=== PATIENT | female | born 1960 | race Caucasian/White ===

== ENCOUNTER → 2017-02-11 | Outpatient (CLI) | payer MEDICARE, MEDICAID ==
--- NOTE | 2017-02-11 10:54 | REPMRS ---
Patient History The patient states she had a clinical breast exam in 12/20 Patient is nulliparous. Digital Woman Screen Mammo: February 11, 2017 - Exam #: [id number] Bilateral CC and MLO view(s) were taken. Technologist: Marisa Cantu, Technologist Prior study comparison: March 05, 2016, digital woman screen mammo performed at [facility]. March 02, 2015, digital woman screen mammo performed at [facility]. FINDINGS: The breast tissue is heterogeneously dense. This may lower the sensitivity of mammography. There has been no change in the appearance of the mammogram from the prior studies. There is a moderate amount of residual fibroglandular tissue which is fairly symmetric. There is no interval development of dominant mass, areas of architectural distortion, or clustered microcalcification typical of malignancy. ASSESSMENT: BI-RADS/ACR category 1 mammogram. Negative. Recommendation Routine screening mammogram in 1 year (for women over age 40). This mammogram was interpreted with the aid of an FDA-approved computer-aided dectection system. Electronically Signed By: Sharif Butcher MD 02/11/17 [id number]
== END ==
LOC: M WHC 07:04
PROVIDERS: ATTEND Nurse Practitioner Family
DX: Z12.31 Encounter for screening mammogram for malignant neoplasm of breast (principal)

== ENCOUNTER → 2018-03-03 | Outpatient (REF) | payer MEDICARE, MEDICAID | LOC: M SFHCWAGY 10:02 | DX: Z12.4 Encounter for screening for malignant neoplasm of cervix (principal); N76.0 Acute vaginitis | CPT/HCPCS: G0123 ==

== ENCOUNTER → 2018-03-03 | Outpatient (CLI) | payer MEDICARE, MEDICAID | LOC: M WHC 09:53 | DX: Z12.31 Encounter for screening mammogram for malignant neoplasm of breast (principal); Z12.4 Encounter for screening for malignant neoplasm of cervix; Z12.12 Encounter for screening for malignant neoplasm of rectum; N76.0 Acute vaginitis | CPT/HCPCS: 77067; G0123 ==

== ENCOUNTER → 2019-03-04 | Outpatient (CLI) | payer MEDICARE, MEDICAID ==
[~2019-03-04] MED LIST: EFFE150C2 PO; EFFE37.5 PO; METO1TAB32 PO
--- NOTE | 2019-03-04 12:01 | REPMRS ---
Patient History The patient states she had a clinical breast exam in 02/2019. Patient is postmenopausal and is nulliparous. No Hormone Replacement Therapy 3D TOMOSYNTHESIS WAS PERFORMED. Digital Woman Screen Mammo: March 04, 2019 - Exam #: [id number] Bilateral CC and MLO view(s) were taken. Technologist: Donna Mcmanus, Technologist Prior study comparison: March 03, 2018, digital woman screen mammo performed at [facility]. February 11, 2017, digital woman screen mammo performed at [facility]. FINDINGS: The breast tissue is heterogeneously dense. This may lower the sensitivity of mammography. There has been no change in the appearance of the mammogram from the prior studies. There is a moderate amount of residual fibroglandular tissue which is fairly symmetric. There is no interval development of dominant mass, areas of architectural distortion, or clustered microcalcification typical of malignancy. Assessment: BI-RADS/ACR category 1 mammogram. Negative Mammogram. Recommendation Routine screening mammogram in 1 year (for women over age 40). This mammogram was interpreted with the aid of an FDA-approved computer-aided dectection system. Electronically Signed By: Sharif Butcher MD 03/04/19 1200
== END ==
LOC: M WHC 10:05
PROVIDERS: ATTEND Nurse Practitioner Family
DX: Z12.31 Encounter for screening mammogram for malignant neoplasm of breast (principal); Z78.0 Asymptomatic menopausal state
CPT/HCPCS: 77063; 77067; G0463

== ENCOUNTER → 2020-03-07 | Outpatient (CLI) | payer MEDICARE, MEDICAID ==
--- NOTE | 2020-03-07 12:25 | REPMRS ---
Patient History The patient states she had a clinical breast exam in March 2020. No Hormone Replacement Therapy 3D TOMOSYNTHESIS WAS PERFORMED. The [facility] lifetime risk for breast cancer is 13.8%. FIDELIA Brown. Digital Woman Screen Mammo: March 07, 2020 - Exam #: [id number] Bilateral CC and MLO view(s) were taken. Technologist: Alejandra Frankel, Technologist Prior study comparison: March 04, 2019, bilateral digital woman screen mammo performed at [facility]. March 03, 2018, digital woman screen mammo performed at [facility]. FINDINGS: The breast tissue is heterogeneously dense. This may lower the sensitivity of mammography. There has been no change in the appearance of the mammogram from the prior studies. There is a moderate amount of residual fibroglandular tissue which is fairly symmetric. There is no interval development of dominant mass, areas of architectural distortion, or clustered microcalcification typical of malignancy. Assessment: BI-RADS/ACR category 1 mammogram. Negative Mammogram. Recommendation Routine screening mammogram in 1 year (for women over age 40). This mammogram was interpreted with the aid of an FDA-approved computer-aided dectection system. Electronically Signed By: Sharif Butcher MD 03/07/20 [id number]
== END ==
LOC: M WHC 10:06
PROVIDERS: ATTEND Nurse Practitioner Family
DX: Z12.31 Encounter for screening mammogram for malignant neoplasm of breast (principal)
CPT/HCPCS: 77063; 77067; G0463

== ENCOUNTER → 2021-02-22 | Outpatient (CLI) | payer MEDICARE, MEDICAID | LOC: M WHC 10:33 | PROVIDERS: ATTEND Internal Medicine | DX: Z53.9 Procedure and treatment not carried out, unspecified reason (principal); Z12.31 Encounter for screening mammogram for malignant neoplasm of breast ==

== ENCOUNTER → 2021-03-14 | Outpatient (CLI) | payer MEDICARE, MEDICAID ==
--- NOTE | 2021-03-14 11:58 | REP ---
INDICATION: TANESHA SCR MAMMO/V76.10. COMPARISON: 03/07/2020 as well as other prior exams. TECHNIQUE: MLO and CC views of both breasts performed with tomosynthesis. FINDINGS: Moderate fibroglandular tissue is present bilaterally in a heterogeneous pattern. In the posteromedial right breast there is an oval lobulated nodular opacity which measures 13 x 6 mm and contains tiny calcifications. The nodular density appears to have been present on prior studies but the calcifications are new. In the right axilla there is an oval nodular density also containing tiny calcifications. This is incompletely visualized. Short axis dimension is 12 mm. No other mass or clustered microcalcifications are seen bilaterally. The Volpara volumetric breast density pattern is B. IMPRESSION: BIRADS/ACR category 0, incomplete. Oval lobulated nodular opacity in the posteromedial right breast contains tiny calcifications. Oval smoothly marginated nodular density in the right axilla is incompletely visualized and contains tiny calcifications. Recommend spot compression magnification views to further evaluate these 2 areas. Ultrasound will likely be necessary. This patient's Tyrer-Cuzick lifetime breast cancer risk assessment score is 13.5%. This mammogram was interpreted with the aid of an FDA-approved computer-aided detection system. The patient states she had a clinical breast exam in over 1 year ago. The patient letter being requested is M0. RECOMMENDATION: Recommend spot compression views and ultrasound right breast as discussed above. <Electronically signed by Sharif Butcher > 03/14/21 [id number]
== END ==
LOC: M WHC 11:00
PROVIDERS: ATTEND Internal Medicine
DX: Z12.31 Encounter for screening mammogram for malignant neoplasm of breast (principal)

== ENCOUNTER → 2021-03-27 | Outpatient (CLI) | payer MEDICARE, MEDICAID ==
--- NOTE | 2021-03-27 16:16 | REP ---
INDICATION: ADDL VIEWS R BREAST/NODULAR OPACITY; RIGHT BREAST ADDL VIEWS-NODULAR OPACITY. Screening mammography from March 14, 2021 was BI-RADS category 0 incomplete because of a prominent lymph node in the axilla and new microcalcifications in a nodular opacity in the medial aspect of the right breast. Diagnostic imaging was recommended. COMPARISON: Comparison mammography is also reviewed from March 07, 2020, March 04, 2019. TECHNIQUE: Magnified focal spot-compression CC, MLO, and non magnified true mL views are obtained. 3D tomography is carried out in the mL projection. Targeted right breast and right axillary ultrasound is performed. This mammogram was interpreted with the aid of an FDA-approved computer-aided detection system. FINDINGS: Scattered fibroglandular background echotexture is seen. A irregularly shaped low-attenuation nodular density is seen in the medial aspect of the right breast superomedial quadrant on diagnostic imaging. There are 5-6 microcalcifications associated with this. No other breast lesion is seen. In the axilla, a 1.3 cm spherical lymph node is seen. This contains what appears to be 1 calcification as well. The Volpara volumetric breast density pattern is b. Targeted ultrasound: Targeted right breast sonography is performed, 12:00 to 3:00 through the superomedial quadrant. And heterogeneous fibroglandular background echotexture is seen. No breast mass or cyst is seen. No suspicious sonographic findings in this portion of the breast. In the right axilla, scanning demonstrates a hypoechoic solid appearing area containing calc echogenic foci consistent with calcifications. This is felt to correspond with the apparent lymph node on mammography. It measures 1.6 x 1.0 x 1.3 cm on ultrasound images. There is some peripheral flow. It is just beneath the dermis. Possibilities include lymph node versus sebaceous cyst. IMPRESSION: BIRADS/ACR category 4 suspicious right breast mammographic and sonographic findings. Microcalcifications and low-attenuation nodular density in the superomedial quadrant of the right breast without ultrasound correlate. Stereotactic needle biopsy recommended. Also there is a 13 mm spherical nodular density containing a calcification in the right axilla. This is not a simple cyst or a benign appearing lymph node. Abnormal lymph node versus sebaceous cyst. Clinical correlation suggested. Surgical excision versus ultrasound-guided aspiration/biopsy recommended. This patient's Tyrer-Cuzick lifetime breast cancer risk assessment score is 13.5%. RECOMMENDATION: Stereotactic needle biopsy for microcalcifications right breast as above. Marker clip placement and post clip placement right breast mammography recommended. Clinical correlation and possibly ultrasound-guided needle biopsy for right axillary lesion as described above.. The patient letter being requested is M1. <Electronically signed by Kishore Wallace > 03/27/21 [id number]
== END ==
LOC: M WHC 09:55
PROVIDERS: ATTEND Internal Medicine
DX: R92.2 Inconclusive mammogram (principal)
CPT/HCPCS: 76642; 77065; G0279

== ENCOUNTER → 2021-04-18 | Outpatient (CLI) | payer MEDICARE, MEDICAID ==
[~2021-04-18] MED LIST changes: +DOCU100C16 PO; +LIPI20TA PO
[2021-04-18 14:09] VITALS: BP 126/78
--- NOTE | 2021-04-18 22:04 | ROOPDOC ---
[facility] Report Of Operation Report of Operation Date of the procedure:04/18/21 Diagnosis: Right axillary lesion Procedure:Ultrasound guided aspiration of Right/ axillary lesion Proceduralist: Amber Carr D.O. EBL: minimal Lidocaine 1% [id number] Expiration: 11/2024 Sodium Bicarbonate 8.4% LOT [id number] Expiration: 11/2021 Procedure details: Informed consent was obtained. Patient signed her own consent as she is making her medical decisions. The most common risk and possible complications including bleeding, hematoma, bruising, infection, injury to surrounding structures were explained to the patient and she expressed understanding. Patient was taken to the procedure room and placed on the bed in the supine position with the right upper extremity placed above the head. Appropriate time out was done stating patients name, date of , and the procedure to be performed. The right axilla was prepped and draped in the usual fashion. The ultrasound was used to confirm the location of the right axillary lesion which has some cystic appearance. This lesion is very superficial. Plain Lidocaine 1% and 8.4% sodium bicarbonate 10:1 mix was used to anesthetize the skin, and tissues along the anticipated aspiration tract. 18 G needle was used to investigate if the lesion is solid or cystic. About 1 cc of very viscous yellowish fluid was pulled out of the lesion. This suggests that the lesion is a sebaceous cyst. The fluid was sent for cytology to investigate if it contains proteinaceous material. Due to viscosity of the fluid, complete aspiration of the cystic lesion was not possible. Images were captures. Vocational Education Professional was present. Manual pressure over the cyst aspiration site and tract was held. No bleeding was noted upon removal of the pressure. Patient tolerated procedure well. Discharge instructions were discussed with the patient and she expressed understanding. AMBER CARR DO Apr 18, 2021 22:04
== END ==
LOC: M WHCPRO 07:15
PROVIDERS: ATTEND Surgery
DX: R92.8 Other abnormal and inconclusive findings on diagnostic imaging of breast (principal)

== ENCOUNTER → 2021-04-25 | Outpatient (CLI) | payer MEDICARE, MEDICAID ==
[2021-04-25 11:50] VITALS: BP 122/82
--- NOTE | 2021-04-25 22:07 | ROOPDOC ---
[facility] Report Of Operation Report of Operation DATE OF PROCEDURE: 04/25/21 DIAGNOSIS: Right breast suspicious mass with calcifications PROCEDURE: Right breast stereotactic biopsy with clip placement SURGEON: Amber Carr BLOOD LOSS: minimal Lidocaine 1% LOT [id number] Expiration 11/2024 Sodium Bicarbonate 8.4% LOT [id number] Expiration 11/2021 Hydromark clip LOT [id number] Expiration 12/2023 SHAPE: 3 Bx device: Stereotactic Mammotome Revolve Dual Vacuum- assisted Biopsy System 10 G LOT [id number] Expiration 02/2024 REF [id number] Informed consent was obtained in the preop area. The most common risk and possible complications including bleeding, hematoma, bruising, infection, injury to surrounding structures were explained to the patient and patient expressed understanding. Patient was taken to the procedure room and placed prone on the [email or web address] [facility] Prone Breast Biopsy table with the right breast hanging through the table aperture. Right breast was placed into Cranio-Caudal compression and Ad Setter duncan images were taken. Suspicious mass with calcifications was identified on the duncan images and target was set. CC approach from the top was chosen for this procedure. At this time, since we were able to confirm visibility of the suspicious mass with calcifications and patient tolerated prone positioning allowing to proceed with the biopsy, appropriate time out was done stating patients name, date of , and the procedure to be performed. The right breast in CC compression was prepped in the usual fashion. Plain Lidocaine 1% and 8.4% sodium bicarbonate 10:1 mix was used to anesthetize the skin, the biopsy site and tissues along the anticipated biopsy tract. Small skin incision was made with blade number 11. Mammotome 10 G stereotactic breast biopsy device was inserted through the incision and advanced to the previously set coordinates marking the target lesion. Pre-fire imaging was taken to assure appropriate positioning. At this time, Mammotome 10 G breast biopsy device was fired and five vacuum assisted biopsies were collected. The biopsy samples were investigated with [employer] system and calcifications from the target lesion were observed. Biopsy samples were then placed in the formaldehyde, marked with patients name and right breast biopsy site, and sent to pathology for evaluation. SHAPE 3 Hydromark clip was placed into the Mammotome biopsy device channel and deployed. Post-deployment imaging was done to assure appropriate clip deployment. Clip was noted in the right breast. At this point, paddle CC compression of the right breast was released and manual pressure was held to decrease harmonic effect and to assure hemostasis. No bleeding was noted upon removal of the pressure. Patient was slowly repositioned and placed into sitting position, and then assisted off the table. Post-biopsy mammogram of the right breast was obtained and showed clip in expected position. Postprocedural dressing was placed. Patient tolerated procedure well and was taken to the recovery unit in stable condition. Discharge instructions were discussed with the patient and patient expressed understanding. AMBER CARR DO Apr 25, 2021 22:07
== END ==
LOC: M WHCPRO 06:22
PROVIDERS: ATTEND Surgery
DX: N60.21 Fibroadenosis of right breast (principal)

== ENCOUNTER → 2021-10-12 | Outpatient (CLI) | payer MEDICARE, MEDICAID | LOC: M WHC 13:00 | PROVIDERS: ATTEND Surgery | DX: L72.3 Sebaceous cyst (principal); N63.31 Unspecified lump in axillary tail of the right breast; R22.2 Localized swelling, mass and lump, trunk | CPT/HCPCS: 76882; 77065; G0279 ==

== ENCOUNTER → 2021-11-12 | Outpatient (REF) | payer MEDICARE, MEDICAID | LOC: M SFHCWAGY 12:49 | PROVIDERS: ATTEND Surgery | DX: L72.3 Sebaceous cyst (principal) ==

== ENCOUNTER → 2021-11-21 | Outpatient (REF) | payer MEDICARE, MEDICAID | LOC: M SFHCWAGY 12:55 | PROVIDERS: ATTEND Advanced Practice Midwife | DX: Z12.4 Encounter for screening for malignant neoplasm of cervix (principal); N95.2 Postmenopausal atrophic vaginitis ==

== ENCOUNTER → 2023-01-14 | Outpatient (REF) | payer MEDICARE, MEDICAID | LOC: M SFHCWAGY 17:30 | PROVIDERS: ATTEND Obstetrics & Gynecology | DX: Z12.4 Encounter for screening for malignant neoplasm of cervix (principal) | CPT/HCPCS: 87624; G0123 ==

== ENCOUNTER → 2023-01-28 | Outpatient (CLI) | payer MEDICARE, MEDICAID ==
[2023-01-28 18:16] LABS: ALBUMIN 3.8 G/DL (3.2-5.2); ALKALINE PHOSPHATASE 155 U/L (46-116); ALT/SGPT 18 U/L (7.0-40); AST/SGOT 20 U/L (<34); BILIRUBIN,TOTAL 0.3 MG/DL (0.3-1.2); BLOOD UREA NITROGEN 19 MG/DL (9-23); CALCIUM LEVEL 9.4 MG/DL (8.3-10.6); CARBON DIOXIDE LEVEL 28 MMOL/L (20-31); CHLORIDE LEVEL 103 MMOL/L (98-107); CHOLESTEROL LEVEL 155 MG/DL (<200); CHOLESTEROL RISK RATIO 2.18 (<5); GLOMERULAR FILTRATION RATE > 60.0 (>45); GLUCOSE, FASTING 93 MG/DL (74-106); HDL CHOLESTEROL 70.8 MG/DL (>40); NON-HDL-C 84.2 MG/DL; POTASSIUM SERUM 4.3 MMOL/L (3.5-5.1); SODIUM LEVEL 138 MMOL/L (136-145); TOTAL PROTEIN 7.2 G/DL (5.7-8.2); TRIGLYCERIDES LEVEL 96 MG/DL (<150)
[2023-01-28 18:18] LABS: THYROID STIMULATING HORMONE 0.532 uIU/ML (0.55-4.78)
== END ==
LOC: M PLALAB 16:40
PROVIDERS: ATTEND Internal Medicine
DX: E78.5 Hyperlipidemia, unspecified (principal); E05.90 Thyrotoxicosis, unspecified without thyrotoxic crisis or storm

== ENCOUNTER → 2023-01-28 | Outpatient (CLI) | payer MEDICARE, MEDICAID | LOC: M WHC 16:18 | PROVIDERS: ATTEND Internal Medicine | DX: Z12.31 Encounter for screening mammogram for malignant neoplasm of breast (principal); E78.5 Hyperlipidemia, unspecified; E05.90 Thyrotoxicosis, unspecified without thyrotoxic crisis or storm ==

== ENCOUNTER → 2023-09-01 | Outpatient (CLI) | payer MEDICARE, MEDICAID | LOC: M RAD 11:45 | PROVIDERS: ATTEND Internal Medicine | DX: E05.90 Thyrotoxicosis, unspecified without thyrotoxic crisis or storm (principal); E04.1 Nontoxic single thyroid nodule ==

== ENCOUNTER → 2024-02-20 | Outpatient (CLI) | payer MEDICARE, MEDICAID ==
[~2024-02-20] MED LIST changes: -EFFE150C2 PO; +EFFE150C3 PO; -EFFE37.5 PO; +EFFE37.52 PO
[2024-02-20 11:41] LABS: ALBUMIN 3.8 G/DL (3.2-5.2); ALKALINE PHOSPHATASE 136 U/L (46-116); ALT/SGPT 21 U/L (7.0-40); AST/SGOT 14 U/L (<34); BILIRUBIN,TOTAL 0.4 MG/DL (0.3-1.2); BLOOD UREA NITROGEN 15 MG/DL (9-23); CALCIUM LEVEL 9.7 MG/DL (8.3-10.6); CARBON DIOXIDE LEVEL 30 MMOL/L (20-31); CHLORIDE LEVEL 106 MMOL/L (98-107); CHOLESTEROL LEVEL 168 MG/DL (<200); CHOLESTEROL RISK RATIO 2.61 (<5); CREATININE FOR GFR 0.76 MG/DL (0.55-1.30); GLOMERULAR FILTRATION RATE > 60.0 (>45); GLUCOSE, FASTING 67 MG/DL (74-106); HDL CHOLESTEROL 64.3 MG/DL (>40); LDL CHOLESTEROL 82.1 MG/DL (<100); NON-HDL-C 103.7 MG/DL; POTASSIUM SERUM 4.7 MMOL/L (3.5-5.1); SODIUM LEVEL 142 MMOL/L (136-145); TOTAL PROTEIN 6.8 G/DL (5.7-8.2); TRIGLYCERIDES LEVEL 108 MG/DL (<150)
[2024-02-20 11:42] LABS: THYROID STIMULATING HORMONE 0.476 uIU/ML (0.55-4.78)
== END ==
LOC: M WUC 08:32
PROVIDERS: ATTEND Internal Medicine
DX: E78.5 Hyperlipidemia, unspecified (principal); E05.90 Thyrotoxicosis, unspecified without thyrotoxic crisis or storm

== ENCOUNTER → 2024-05-13 | Outpatient (CLI) | payer MEDICARE, MEDICAID | LOC: M WHC 09:44 | PROVIDERS: ATTEND Obstetrics & Gynecology | DX: Z12.31 Encounter for screening mammogram for malignant neoplasm of breast (principal); R92.333 Mammographic heterogeneous density, bilateral breasts ==

== ENCOUNTER → 2024-12-24 | Outpatient (CLI) | payer MEDICARE, MEDICAID ==
[2024-12-24 14:30] LABS: ALBUMIN 3.9 G/DL (3.2-5.2); ALKALINE PHOSPHATASE 136 U/L (35-104); ALT/SGPT 20 U/L (7.0-40); AST/SGOT 18 U/L (<34); BILIRUBIN,TOTAL 0.4 MG/DL (0.3-1.2); BLOOD UREA NITROGEN 14 MG/DL (9-23); CALCIUM LEVEL 9.3 MG/DL (8.3-10.6); CARBON DIOXIDE LEVEL 25 MMOL/L (20-31); CHLORIDE LEVEL 106 MMOL/L (98-107); CHOLESTEROL LEVEL 172 MG/DL (<200); CHOLESTEROL RISK RATIO 2.86 (<5); CREATININE FOR GFR 0.68 MG/DL (0.55-1.30); FREE T4 1.05 NG/DL (0.89-1.76); GLOMERULAR FILTRATION RATE > 60.0 (>45); GLUCOSE, FASTING 104 MG/DL (74-106); LDL CHOLESTEROL 88.2 MG/DL (<100); POTASSIUM SERUM 4.3 MMOL/L (3.5-5.1); SODIUM LEVEL 144 MMOL/L (136-145); THYROID STIMULATING HORMONE 0.575 uIU/ML (0.55-4.78); TRIGLYCERIDES LEVEL 119 MG/DL (<150)
== END ==
LOC: M WUC 08:32
PROVIDERS: ATTEND Internal Medicine
DX: E78.5 Hyperlipidemia, unspecified (principal); E05.90 Thyrotoxicosis, unspecified without thyrotoxic crisis or storm

== ENCOUNTER → 2025-07-01 | Outpatient (CLI) | payer MEDICARE, MEDICAID | LOC: M WHC 10:39 | PROVIDERS: ATTEND Obstetrics & Gynecology | DX: Z12.31 Encounter for screening mammogram for malignant neoplasm of breast (principal); R92.333 Mammographic heterogeneous density, bilateral breasts ==

== ENCOUNTER → 2025-10-03 | Outpatient (CLI) | payer MEDICARE, MEDICAID ==
[2025-10-03 10:27] LABS: ALT/SGPT 18.0 U/L (7.0-40); AST/SGOT 13.0 U/L (<34); CALCIUM LEVEL 9.5 MG/DL (8.3-10.6); CARBON DIOXIDE LEVEL 27.0 MMOL/L (20-31); CHLORIDE LEVEL 106.0 MMOL/L (98-107); CHOLESTEROL LEVEL 191.0 MG/DL (<200); CHOLESTEROL RISK RATIO 2.87 (<5); CREATININE FOR GFR 0.8 MG/DL (0.55-1.30); GLOMERULAR FILTRATION RATE 82.7 (>45); LDL CHOLESTEROL 91.2 MG/DL (<100); NON-HDL-C 124.6 MG/DL; POTASSIUM SERUM 4.2 MMOL/L (3.5-5.1); SODIUM LEVEL 142.0 MMOL/L (136-145); TRIGLYCERIDES LEVEL 167.0 MG/DL (<150)
[2025-10-03 10:28] LABS: FREE T4 1.08 NG/DL (0.89-1.76)
== END ==
LOC: M LAB 09:23
PROVIDERS: ATTEND Internal Medicine
DX: E78.5 Hyperlipidemia, unspecified (principal); E05.90 Thyrotoxicosis, unspecified without thyrotoxic crisis or storm